=== PATIENT | female | born 1940 | race Hispanic/Latino ===

== ENCOUNTER 2018-11-27 18:17 | Emergency (ER) | payer MEDICARE, OTHER ==
[2018-11-27 18:41] VITALS: RESP 18
--- NOTE | 2018-11-27 19:45 | C.PDOC ---
History Of Present Illness Patient is a 78 year old female who presents to the ED in company of her lice infested friend and is c/o itching on her head and back of neck. She states that she has not seen any insects or bite palmer. Time Seen by Provider: 11/27/18 18:47 Chief Complaint (Nursing): Abnormal Skin Integrity History Per: Patient History/Exam Limitations: no limitations Onset/Duration Of Symptoms: Days Current Symptoms Are (Timing): Still Present Quality Of Symptoms: Itching Recent travel outside of the [place]: No Additional History Per: Patient Past Medical History Reviewed: Historical Data, Nursing Documentation, Vital Signs Vital Signs: Last Vital Signs Temp 98.1 F 11/27/18 18:37 Pulse 62 11/27/18 18:37 Resp 18 11/27/18 18:37 BP 132/79 11/27/18 18:37 Pulse Ox 95 11/27/18 18:37 - Medical History PMH: No Chronic Diseases Surgical History: No Surg Hx Family History: States: No Known Family Hx - Social History Hx Alcohol Use: No Hx Substance Use: No - Immunization History Hx Tetanus Toxoid Vaccination: Yes Hx Influenza Vaccination: Yes Hx Pneumococcal Vaccination: Yes Review Of Systems Skin: Positive for: Other (itchiness on head and back of neck ) Physical Exam - Physical Exam Appears: Non-toxic, No Acute Distress Skin: No Rash, Other (no bites, redness, swelling noted on hair or neck ) ED Course And Treatment O2 Sat by Pulse Oximetry: 95 (on RA) Pulse Ox Interpretation: Normal Medical Decision Making Medical Decision Making: Patient given medication to take home Disposition Counseled Patient/Family Regarding: Diagnosis, Need For Followup, Rx Given - Disposition Disposition: HOME/ ROUTINE Disposition Time: 19:35 Condition: GOOD Additional Instructions: Use permetherin as prescribed. Wash all clothing in hot water and put in dryer. Follow up in medical clinic. Prescriptions: Permethrin 1% Kit [Nix Complete Lice Elimination Kit 1%] 59 ml TP ONCE #1 bottle Instructions: Lice Forms: [facility] (Kazakh), General Discharge Instructions - Clinical Impression Clinical Impression: Exposure to head lice - PA / [employer] OPERATOR / Resident Statement MD/DO has examined the patient and agrees with the treatment plan. - Scribe Statement The provider has reviewed the documentation as recorded by the Shanda Mcdowell All medical record entries made by the Scribe were at my direction and personally dictated by me. I have reviewed the chart and agree that the record accurately reflects my personal performance of the history, physical exam, medical decision making, and the department course for this patient. I have also personally directed, reviewed, and agree with the discharge instructions and disposition.
[2018-11-27 20:09] VITALS: BP 120/76; PULSE 86; TEMP 97.6
[2018-11-27 20:46] VITALS: O2SAT 95
== END 2018-11-27 20:00 | disposition home or self-care (01) ==
LOC: C.ER 18:17
DX: Z20.7 Contact with and (suspected) exposure to pediculosis, acariasis and other infestations (principal)